=== PATIENT | male | born 1960 | race Caucasian/White ===

== ENCOUNTER → 2020-05-15 | Outpatient (CLI) | payer OTHER ==
[~2020-05-15] MED LIST: ANTIDEPRESSANT; ASPIR LOW81 MG PO; AXIRON30 MG/1.1 TD; CEPHALEXIN500 M1 PO; LISINOPRIL10 MG PO; NAPROXEN D/R500 MG PO
== END | disposition home or self-care (01) ==
LOC: COVID19 01:05
DX: R50.9 Fever, unspecified (principal); R05 Cough; R07.9 Chest pain, unspecified; Z20.828 Contact with and (suspected) exposure to other viral communicable diseases

== ENCOUNTER → 2021-11-21 | Outpatient (CLI) | payer OTHER | LOC: COVID19 15:03 | PROVIDERS: ATTEND Internal Medicine | DX: Z11.52 Encounter for screening for COVID-19 (principal); Z20.822 Contact with and (suspected) exposure to COVID-19 ==